=== PATIENT | male | born 1995 | race African-American/Black ===

== ENCOUNTER 2017-03-22 00:06 | Emergency (ER) | payer SELFPAY ==
[2017-03-22 00:52] LABS: ABSOLUTE BASOPHILS # (AUTO) 0.1 10^3/uL (0.0-0.2); ABSOLUTE EOSINOPHILS # (AUTO) 0.1 10^3/uL (0.0-0.6); ABSOLUTE LYMPHOCYTES (AUTO) 1.6 10^3/uL (0.5-4.7); ABSOLUTE MONOCYTES (AUTO) 0.5 10^3/uL (0.1-1.4); ABSOLUTE NEUT (AUTO) 4.4 10^3/uL (1.7-8.2); BASOPHILS % (AUTO) 0.9 % (0-2); HEMATOCRIT 43.4 % (37.9-51.0); HEMOGLOBIN 14.1 g/dL (13.5-17.0); LYMPHOCYTES % (AUTO) 24.5 % (13-45); MEAN CORPUSCULAR HEMOGLOBIN 21.6 pg (27.0-33.4); MEAN CORPUSCULAR HGB CONC 32.6 g/dL (32.0-36.0); MEAN CORPUSCULAR VOLUME 66 fl (80-97); MONOCYTES % (AUTO) 7.1 % (3-13); PLATELET COUNT 367 10^3/uL (150-450); RED BLOOD COUNT 6.54 10^6/uL (4.35-5.55); RED CELL DISTRIBUTION WIDTH 16.2 % (11.5-14.0); SEGMENTED NEUTROPHILS % (AUTO) 66.5 % (42-78); TOTAL CELLS COUNTED % (AUTO) 100 %; WHITE BLOOD COUNT 6.6 10^3/uL (4.0-10.5)
[2017-03-22 00:59] LABS: APPEARANCE,URINE CLEAR; BILIRUBIN,URINE NEGATIVE (NEGATIVE); COLOR,URINE YELLOW; GLUCOSE, URINE NEGATIVE (NEGATIVE); KETONES,URINE NEGATIVE (NEGATIVE); LEUKOCYTE ESTERASE,URINE NEGATIVE (NEGATIVE); NITRITE,URINE NEGATIVE (NEGATIVE); PROTEIN,URINE NEGATIVE (NEGATIVE); URINE SPECIFIC GRAVITY 1.009; UROBILINOGEN,URINE NEGATIVE mg/dL (<2.0)
[2017-03-22 01:11] LABS: ALANINE AMINOTRANSFERASE 69 U/L (21-72); ALBUMIN 4.9 g/dL (3.5-5.0); ALCOHOL 112 mg/dL (NONE DETECTED); ALKALINE PHOSPHATASE 62 U/L (38-126); ANION GAP 14 (5-19); ASPARTATE AMINO TRANSFERASE 36 U/L (17-59); BILIRUBIN,DIRECT 0.2 mg/dL (0.0-0.4); BILIRUBIN,TOTAL 0.7 mg/dL (0.2-1.3); BLOOD UREA NITROGEN 7 mg/dL (7-20); CALCIUM 10.5 mg/dL (8.4-10.2); CARBON DIOXIDE 24 mmol/L (22-30); CHLORIDE 109 mmol/L (98-107); GLUCOSE 104 mg/dL (75-110); POTASSIUM 4.2 mmol/L (3.6-5.0); SODIUM 146.6 mmol/L (137-145); TOTAL PROTEIN 8.5 g/dL (6.3-8.2)
[2017-03-22 01:12] LABS: ACETAMINOPHEN < 10 ug/mL (10-30); SALICYLATE < 1.0 mg/dL (2.0-20.0)
--- NOTE | 2017-03-22 02:04 | ER Document Report ---
ED General - General Chief Complaint: Suicidal Ideation Stated Complaint: SUICIDIAL IDEATION,POSSIBLE TOXIC INGESTION Time Seen by Provider: 03/22/17 00:34 Notes: Patient is a 21-year-old male without past medical history who presents after an apparent suicide attempt. Patient ingested a bottle of household bleach prior to arrival. He also notes alcohol use today. He states his intention was to harm himself with the ingestion of bleach but paradoxically states that he is happy that his attempt was unsuccessful. He denies any history of similar times in the past. He denies any additional ingestions tonight. He denies any medical complaints at this time. No abdominal pain, vomiting, difficulty breathing or swallowing. He is unable to identify trigger for suicide attempt tonight. Nothing seems to improve his suicidality which he is reports has been ongoing and unchanged for the past 1-1/2 years. He has not seen a general doctor regarding his concerns today. Past Medical History - General Information source: Patient - Social History Smoking Status: Never Smoker Chew tobacco use (# tins/day): No Frequency of alcohol use: with anxiety Lives with: Family Family History: Reviewed & Not Pertinent Patient has suicidal ideation: Yes Patient has homicidal ideation: No Renal/ Medical History: Denies: Hx Peritoneal Dialysis Review of Systems - Review of Systems Notes: Constitutional: Negative for fever. HENT: Negative for sore throat. Eyes: Negative for visual changes. Cardiovascular: Negative for chest pain. Respiratory: Negative for shortness of breath. Gastrointestinal: Negative for abdominal pain, vomiting or diarrhea. Genitourinary: Negative for dysuria. Musculoskeletal: Negative for back pain. Skin: Negative for rash. Neurological: Negative for headaches, weakness or numbness. 10 point ROS negative except as marked above and in HPI. Physical Exam - Vital signs Vitals: Resp 19 03/22/17 00:16 Interpretation: Normal Notes: PHYSICAL EXAMINATION: GENERAL: Well-appearing, well-nourished and in no acute distress. HEAD: Atraumatic, normocephalic. EYES: Pupils equal round and reactive to light, extraocular movements intact, sclera anicteric, conjunctiva are normal. ENT: nares patent, oropharynx clear without exudates. Moist mucous membranes. NECK: Normal range of motion, supple without lymphadenopathy LUNGS: Breath sounds clear to auscultation bilaterally and equal. No wheezes rales or rhonchi. HEART: Regular rate and rhythm without murmurs ABDOMEN: Soft, nontender, normoactive bowel sounds. No guarding, no rebound. No masses appreciated. EXTREMITIES: Normal range of motion, no pitting or edema. No cyanosis. NEUROLOGICAL: No focal neurological deficits. Moves all extremities spontaneously and on command. PSYCH: Mildly intoxicated, broad affect, appears to be below average intellectual capacity SKIN: Warm, Dry, normal turgor, no rashes or lesions noted. Course - Re-evaluation Re-evalutation: 03/22/17 02:00 Patient presents after intentionally ingesting bleach and apparent suicide attempt. Poison control has been contacted and does not recommend any specific therapies other than supportive care. Patient is also drinking alcohol tonight. He states that he has had passive suicidal ideation for at least last 1 year but has not made an attempt on his life until tonight. Patient states that he continues to be suicidal but inconsistently also states that he is happy his suicide attempt did not work tonight. He denies any prior mental health diagnoses. He denies any complaints at this time. Vitals within normal limits. Medical screening labs unremarkable with the exception of an elevated alcohol level. He is medically cleared for evaluation by psychiatry. He does not meet IVC criteria at this time. - Vital Signs Vital signs: Temp Pulse Resp BP Pulse Ox 19 140/66 H 100 03/22/17 01:01 03/22/17 01:01 03/22/17 01:01 - Laboratory Result Diagrams: 03/22/17 00:40 03/22/17 00:40 Laboratory results interpreted by me: 03/22/17 03/22/17 00:40 00:40 RBC 6.54 H MCV 66 L MCH 21.6 L RDW 16.2 H Sodium 146.6 H Chloride 109 H Calcium 10.5 H Total Protein 8.5 H Salicylates < 1.0 L Acetaminophen < 10 L - EKG Interpretation by Me Additional EKG results interpreted by me: 03/22/17 02:12 Normal sinus rhythm. Rate 70. No ST elevations or depressions. QTC is 410. Discharge - Discharge Clinical Impression: Suicidal ideation Bleach ingestion Qualifiers: Encounter type: initial encounter Injury intent: intentional self-harm Qualified Code(s): T54.92XA - Toxic effect of unspecified corrosive substance, intentional self-harm, initial encounter Condition: Fair Disposition: PSYCH HOSP/UNIT
[2017-03-22 02:05] LABS: URINE AMPHETAMINES SCREEN NEGATIVE; URINE BARBITURATES SCREEN NEGATIVE; URINE BENZODIAZEPINES SCREEN NEGATIVE; URINE COCAINE SCREEN NEGATIVE; URINE MARIJUANA (THC) SCREEN NEGATIVE; URINE METHADONE SCREEN NEGATIVE; URINE PHENCYCLIDINE SCREEN NEGATIVE
--- NOTE | 2017-03-22 08:12 | EKG REPORT ---
SEVERITY:- ABNORMAL ECG - SINUS RHYTHM FIRST DEGREE AV BLOCK : Confirmed by: Vern York MD 22-Mar-2017 08:11:06
--- NOTE | 2017-03-22 12:35 | PSYCHOLOGICAL NOTE ---
Psych Note - Psych Note Psych Note: Reason for Consult: Suicidal ideation/gesture Consent Permissions: [place] Shannon, mother, Patient is a 21-year-old male without past medical history who presents after an apparent suicide attempt. Patient ingested a bottle of household bleach prior to arrival. He also notes alcohol use today. He states his intention was to harm himself with the ingestion of bleach but paradoxically states that he is happy that his attempt was unsuccessful. He denies any history of similar times in the past. He denies any additional ingestions tonight. He denies any medical complaints at this time. No abdominal pain, vomiting, difficulty breathing or swallowing. He is unable to identify trigger for suicide attempt tonight. Nothing seems to improve his suicidality which he is reports has been ongoing and unchanged for the past 1-1/2 years. Patient disclosed that when he came home last night he was upset because his mom was yelling at him. He disclosed that he did drink 2 different chemicals but was unable to state which type other then "it was bleach." Patient states it was "spur of the moment." Patient denies wanting to hurt himself or others. Patient denies history of substance abuse. Patient confirms he did drink the chemical in front of his mother. When asked with the patient felt about his actions last night he stated "it was stupid.. It was real stupid.." Patient confirmed that he was discharged from the [facility] after failing a drug screening stating "I did a bunch of Xanax and had to go to work." Patient's mother, Zoe, disclosed the patient has been out of work since August. In August he was released from the [facility] after only 2 years. She continued disclosed that the patient did not pass a drug screening right before getting out of the [facility]. Patient is with a baby on the way and they were living in [place] however his moved to [facility] to live with her family and he is now down here living with her. She disclosed that she has never seen her son acting this way however his reported an episode previously "she said he he hit his head on the wall repeatedly after night out drinking with his friends." She continued to state that yesterday he "took my car without asking" when he returned home it was clear he had been drinking but "he was acting like he was on something else." He she states that the patient was yelling saying "that is all you care about is the car...I can take care of that" then poured a glass of Awesome Production Team Leader drank it then poured another glass of Mean Green Production Team Leader and drink that. Patient's mother discloses concern the patient may be doing drugs; "I have never seen him act like that.... He is normally cool, collected... Never gave me any trouble in school ...but he has book sense but no commonsense." Patient is alert and orientated to person, place, time and circumstance. Mood is euthymic with congruent affect as evidenced by openly engaging with clinician and smiling. Patient denies suicidal ideation confirms suicidal gesture of drinking switch cleaner in front of his mother during an argument. Patient was intoxicated at the time. Patient denies homicidal ideation. Delusions are absent behaviors congruent with intact reality based presentation i.e. organized and linear thought processes. Eye contact was fair. Conversational speech was within normal rate, tone and prosody. Intellectual abilities appear to be within the average range. Attention and concentration are fair. Insight , judgment, impulse control are fair. 291.9 (F10.99) unspecified alcohol related disorder Impression\\plan: Patient is considered psychiatrically clear. Patient does not meet IVC criteria per [place] GS 122C. Patient denies suicidal or homicidal ideation. Patient confirms suicidal gesture of drinking chemicals in front of his mother during an argument while intoxicated. He denies this was an attempt to harm himself and stated his actions last night was "it was stupid.. It was real stupid.." Patient's mother is concerned the patient is doing some kind of drug in addition to drinking; patient was discharged from the [facility] in August 2015 for failing a drug screen. While patient denies substance abuse history; he will be provided a substance abuse packet and encouraged to follow through with substance abuse assessment. Dr. Teixeira was consulted and the care and management of this patient; attending physician is agreement with recommendations and disposition.
[2017-03-22 13:15] VITALS: BP 135/67
--- NOTE | 2017-03-25 13:38 | ER Document Report ---
Doctor's Note Notes: 03/25/17 13:54 Late entry for 03/22/2017: Reviewed patient's chart and interviewed patient. Reportedly mother witnessed ingestion of a cup of Mean Green Super Strength Cleanser and a cup of Awesome cleanser, prior to coming to the ED about midnight. He has no complaints regarding the ingestions. Denies any pain, difficulty swallowing, or breathing. Has not vomited. VS have all remained normal. Labs essentially normal except for ETOH of 112. Oriented x 3. Oral exam normal, no swelling, erythema, etc. Lungs clear. Not coughing.. Has been able to eat and drink this morning. Patient appears to be medical stable for transfer or discharge. Ace Maharaj MD
== END 2017-03-22 13:07 | disposition home or self-care (01) ==
LOC: ER 00:06
DX: T54.92XA Toxic effect of unspecified corrosive substance, intentional self-harm, initial encounter (principal)
CPT/HCPCS: 36415; 80053; 80307; 81001; 85025; 93005; 93010; 99285

== ENCOUNTER 2018-05-13 17:29 | Emergency (ER) | payer SELFPAY ==
[2018-05-13] MEDS ORDERED: ONDANSETRON 4 MG TAB.RAPDIS PO ONE (18:34)
[2018-05-13] MEDS ORDERED: PROCHLORPERAZINE MALEATE 5 MG TABLET PO ONE (18:34)
[2018-05-13] MEDS ORDERED: LIDOCAINE 2% INJ-PF (20 MG/ML) 10 ML AMPUL NEB ONE (18:34)
[2018-05-13] MEDS ORDERED: ALBUTEROL SULFATE HFA (90 MCG/PUFF) 8 GM MDI (1 MDI/ER DISP) IH ONE (18:34)
[2018-05-13] MEDS ORDERED: IPRATROPIUM/ALBUTEROL 0.5-2.5 MG/3 ML AMPUL NEB ONE (18:34)
[2018-05-13] MEDS ORDERED: LIDOCAINE 2% INJ-PF (20 MG/ML) 2 ML AMPUL NEB ONE (18:48)
[2018-05-13] MEDS ORDERED: PROCHLORPERAZINE MALEATE 5 MG TABLET ONE (19:00)
--- NOTE | 2018-05-13 19:42 | ER Document Report ---
ED General - General Chief Complaint: Back Pain Stated Complaint: BACK PAIN/HEADACHE Time Seen by Provider: 05/13/18 18:26 TRAVEL OUTSIDE OF THE [place] IN LAST 30 DAYS: No - HPI Patient complains to provider of: Back pain headaches shortness of breath Notes: Patient coming in with multiple complaints states ongoing for the last 2 weeks. Patient states he has been tried [id number] medications to help out with his symptoms however continue on. Patient states he used to smoke however at this time vapes. Patient states shortness of breath whenever he is walking around does have a history of asthma in the past. Patient states headaches similar to normal headaches in the past. Patient denies any head trauma denies any history of traumatic back injury as well. Patient states mostly lower back pain. Patient states all symptoms are worse with exertion. Patient otherwise looks to be nontoxic laughing and joking with his upon my evaluation. - Related Data Allergies/Adverse Reactions: No Known Allergies Allergy (Unverified 03/22/17 06:11) Past Medical History - Social History Smoking Status: Current Every Day Smoker Chew tobacco use (# tins/day): No Frequency of alcohol use: Social Drug Abuse: None Family History: Reviewed & Not Pertinent Patient has suicidal ideation: No Patient has homicidal ideation: No Renal/ Medical History: Denies: Hx Peritoneal Dialysis Review of Systems - Review of Systems Constitutional: Other - Headaches back pain shortness of breath EENT: No symptoms reported Cardiovascular: No symptoms reported Respiratory: No symptoms reported Gastrointestinal: No symptoms reported Genitourinary: No symptoms reported Male Genitourinary: No symptoms reported Musculoskeletal: No symptoms reported Skin: No symptoms reported Hematologic/Lymphatic: No symptoms reported Neurological/Psychological: No symptoms reported Physical Exam - Vital signs Vitals: Temp Pulse Resp BP Pulse Ox 99.4 F 77 18 147/79 H 99 05/13/18 17:43 05/13/18 17:43 05/13/18 17:43 05/13/18 17:43 05/13/18 17:43 Interpretation: Normal - General General appearance: Appears well, Alert - HEENT Head: Normocephalic, Atraumatic Eyes: Normal Pupils: PERRL - Respiratory Respiratory status: No respiratory distress Chest status: Nontender Breath sounds: Wheezing - Scattered wheezing Chest palpation: Normal - Cardiovascular Rhythm: Regular Heart sounds: Normal auscultation Murmur: No - Abdominal Inspection: Normal Distension: No distension Bowel sounds: Normal Tenderness: Nontender Organomegaly: No organomegaly - Back Back: Normal, Nontender - Extremities General upper extremity: Normal inspection, Nontender, Normal color, Normal ROM, Normal temperature General lower extremity: Normal inspection, Nontender, Normal color, Normal ROM, Normal temperature, Normal weight bearing. No: Masha's sign - Neurological Neuro grossly intact: Yes Cognition: Normal Orientation: AAOx4 [place] Coma Scale Eye Opening: Spontaneous [place] Coma Scale Verbal: Oriented [place] Coma Scale Motor: Obeys Commands [place] Coma Scale Total: 15 Speech: Normal Motor strength normal: LUE, RUE, LLE, RLE Sensory: Normal - Psychological Associated symptoms: Normal affect, Normal mood - Skin Skin Temperature: Warm Skin Moisture: Dry Skin Color: Normal Course - Re-evaluation Re-evalutation: 05/13/18 20:27 Explained to the patient more likely his wheezing is due to his smoking did recommend patient stop smoking and stop vaping. We will give the patient Compazine [employer] to help out with his headaches. Recommend Tylenol Motrin for other pains. Patient states understanding will be discharged home. The patient presents with headache without signs of SHOT DROPPER bleed, stroke, infection, or other serious etiology. The patient is neurologically intact. Given the extremely low risk of these diagnoses further testing and evaluation for these possibilities does not appear to be indicated at this time. The patient has been instructed to return if the symptoms worsen or change in any way.. The patient presents with low back pain without signs of spinal cord compression, cauda equina syndrome, infection, aneurysm, or other serious etiology. The patient is neurologically intact. Given the extremely low risk of these diagnoses further testing and evaluation for these possibilities does not appear to be indicated at this time. The patient has been instructed to return if the symptoms worsen or change in any way. - Vital Signs Vital signs: Temp Pulse Resp BP Pulse Ox 99.4 F 77 18 147/79 H 99 05/13/18 17:43 05/13/18 17:43 05/13/18 17:43 05/13/18 17:43 05/13/18 17:43 Discharge - Discharge Clinical Impression: Shortness of breath Back pain Qualifiers: Back pain location: low back pain Chronicity: chronic Back pain laterality: unspecified Sciatica presence: without sciatica Qualified Code(s): M54.5 - Low back pain; G89.29 - Other chronic pain Headache Qualifiers: Headache type: unspecified Headache chronicity pattern: unspecified pattern Intractability: not intractable Qualified Code(s): R51 - Headache Instructions: Ice Packs ([facility]), Low Back Pain ([facility]), Warm Packs ([facility]), Dyspnea, Nonspecific ([facility]), Stop Smoking ([facility]) Additional Instructions: Your shortness of breath is more likely due to your vaping use your initial physical examination did reveal slight wheezes any lungs recommend we treat this with the inhaler that we gave you here in ER 2 puffs every 4 hours as needed for shortness of breath this medication will not work if you continue to vapor or smoke. For your headaches we will start you on Compazine and Zofran these are too nausea medications that will help out with headaches I would still recommend to continue to take Tylenol and Motrin as prescribed. Please take Tylenol and Motrin as prescribed for your back pain please also use warm packs and ice packs. Return to ER symptoms worsen follow-up with your primary care physician or clinic listed. Prescriptions: Ibuprofen [Motrin 600 mg Tablet] 600 mg PO Q8HP PRN #21 tablet PRN Reason: Ondansetron HCl [Zofran 4 mg Tablet] 1 - 2 tab PO Q6 #30 tablet Prochlorperazine Maleate [Compazine] 5 mg PO Q6 #30 tablet Forms: Return to Work
[2018-05-13 20:00] VITALS: BP 143/75
== END 2018-05-13 19:54 | disposition home or self-care (01) ==
LOC: ER 17:29
DX: M54.5 Low back pain (principal); G89.29 Other chronic pain; R06.02 Shortness of breath; R51 Headache; M54.9 Dorsalgia, unspecified; J45.909 Unspecified asthma, uncomplicated; F17.200 Nicotine dependence, unspecified, uncomplicated
CPT/HCPCS: 94640; 99284; S0119; S0183; J3490; J7620